=== PATIENT | male | born 1965 | race Caucasian/White ===

== ENCOUNTER → 2016-09-18 | Outpatient (CLI) | payer OTHER ==
[2016-08-08 18:48] VITALS: BP 124/81
[~2016-09-18] MED LIST: HYDR-971 PO; NAPR550T PO; ORPH100T PO
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
== END | disposition home or self-care (01) ==
LOC: KCIC MRI 15:53
DX: S46.911A Strain of unspecified muscle, fascia and tendon at shoulder and upper arm level, right arm, initial encounter (principal); M54.2 Cervicalgia; W19.XXXA Unspecified fall, initial encounter; Y93.89 Activity, other specified; Y92.89 Other specified places as the place of occurrence of the external cause; Y99.8 Other external cause status
CPT/HCPCS: 72141; 73221

== ENCOUNTER → 2017-05-25 | Outpatient (CLI) | payer OTHER ==
[2016-08-08 18:48] VITALS: BP 124/81
[~2017-05-25] MED LIST changes: +NAPR-682 PO; -NAPR550T PO
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
== END | disposition home or self-care (01) ==
LOC: KCIC CT 08:03
DX: S22.31XD Fracture of one rib, right side, subsequent encounter for fracture with routine healing (principal); C64.1 Malignant neoplasm of right kidney, except renal pelvis; X58.XXXD Exposure to other specified factors, subsequent encounter
CPT/HCPCS: 71250

== ENCOUNTER → 2018-07-22 | Outpatient (CLI) | payer BC ==
[2016-08-08 18:48] VITALS: BP 124/81
[~2018-07-22] MED LIST changes: +HYDR-3164 PO; -HYDR-971 PO
--- NOTE | 2018-07-22 14:07 | KCIC ---
EXAM: Cervical spine, 5 views. HISTORY: Pain. Left thumb numbness. COMPARISON: None. FINDINGS: 5 views of the cervical spine are obtained. There is minimal retrolisthesis of C3 on C4 and C5 on C6. There is mild degenerative endplate remodeling predominantly at C5-C6. There is mild facet arthropathy contributing to left foraminal stenosis at C3-C4, C4-C5 and C5-C6. IMPRESSION: 1. Multilevel degenerative change, described above. This results in foraminal stenosis at multiple levels. 2. No acute osseous finding. Electronically signed by: April Izaguirre MD (07/22/2018 2:03 PM) [facility]
== END | disposition home or self-care (01) ==
LOC: KCIC 13:36
PROVIDERS: ATTEND Chiropractor
DX: M47.22 Other spondylosis with radiculopathy, cervical region (principal); M48.02 Spinal stenosis, cervical region
CPT/HCPCS: 72050

== ENCOUNTER 2018-08-28 06:08 | Day surgery (SDC) | payer BC ==
[~2018-08-28] VITALS: Ht 172.7 cm; Wt 94.1 kg
[2018-08-28] MEDS ORDERED: DEXAMETHASONE SOD PHOS 20 MG/5 ML VIAL. ONE (06:49)
[2018-08-28] MEDS ORDERED: LIDOCAINE 2% PF 5 ML VIAL. ONE (06:49)
[2018-08-28] MEDS ORDERED: ONDANSETRON PF 4 MG/2 ML VIAL. ONE (06:49)
[2018-08-28] MEDS ORDERED: IV RINGERS,LACTATED 1000ML 1,000 ML IV SCH (07:00)
[2018-08-28] MEDS ORDERED: LIDOCAINE 1% PF 2 ML VIAL. ID PRN (07:00)
[2018-08-28] MEDS ORDERED: LIDOCAINE 1% PF 30 ML VIAL. ONE (07:00)
[2018-08-28] MEDS ORDERED: fentaNYL PF VIAL 100 MCG/2 ML VIAL IV PRN ×2 (07:00)
[2018-08-28] MEDS ORDERED: HYDROmorphone 2 MG/ML VIAL IV PRN (07:00)
[2018-08-28] MEDS ORDERED: MORPHINE SULFATE 4 MG/ML VIAL. IV PRN (07:00)
[2018-08-28] MEDS ORDERED: ONDANSETRON PF 4 MG/2 ML VIAL. IV PRN (07:00)
[2018-08-28] MEDS ORDERED: BUPIVACAINE MPF 0.5% 30 ML VIAL. ONE (07:00)
[2018-08-28] MEDS ORDERED: PROCHLORPERAZINE 10 MG/2 ML VIAL. IV PRN (07:00)
[2018-08-28] MEDS ORDERED: MIDAZOLAM HCL/PF 2 MG/2 ML VIAL. ONE (07:19)
[2018-08-28] MEDS ORDERED: fentaNYL PF VIAL 100 MCG/2 ML VIAL ONE (07:19)
--- NOTE | 2018-08-28 07:29 | DISCH ---
DISCHARGE INSTRUCTIONS Condition on Discharge Condition on Discharge: Stable Activity After Discharge Activity Instructions for Disc: Other, see below Other activity instructions: wiggle fingers Bathing Instructions: Shower-keep dressing dry Weight Bearing Status after Di: As tolerated Diet after Discharge Diet after Discharge: Regular Wound Incision Care Wound/Incision Care: Ice to area for comfort, Keep wound/cast CDI, Keep wound elevated, Change dressing Other wound/incision instructi: ok to change dressing after [address] after DC Call your doctor for: Concerns you may have Follow-Up Follow up with: Renard in 2 wks BRICE MADISON II, MD Aug 28, 2018 07:29
[2018-08-28] MEDS ORDERED: ONDA8TAB9 PO (08:15)
[2018-08-28] MEDS ORDERED: HYDR-3164 PO (08:15)
[2018-08-28 08:30] VITALS: BP 121/77
--- NOTE | 2018-08-28 08:58 | PDOC4 ---
Operative Note Operative Note Date of procedure: 08/28/2018 Surgeon: Pelon Murguia.: None Preoperative diagnosis: Right trigger thumb Postoperative diagnosis: Same Procedure performed: Open right trigger thumb release Anesthesia: Sedation plus local Tourniquet time: 11 minutes Blood loss: 2 mL Findings: Thickened nodule and flexor tendon Complications: None Reason for procedure: Patient is a 53-year-old gentleman who had catching and locking requiring use of his contralateral hand at times at his right thumb. Clinical and radiographic examination were consistent with the above preoperative diagnosis and we had a discussion of the risks, benefits, alternatives to surgery and he wished to proceed. Description of procedure: Patient was greeted in the preoperative area where the correct digit was verified and marked. They were taken back to the operative suite and transferred gently supine onto the operating room table. There antibiotics were started. The patient underwent conscious sedation monitored by the anesthesiology team. A tourniquet was applied to the patient's right upper extremity. Right upper extremity was then prepped and draped in our usual sterile fashion we conducted our standard preoperative timeout. I then palpated and over the affected digit for the nodule and metacarpal head. I then made an incision corresponding to this. I incised skin with a scalpel and used bipolar cautery for hemostasis. Mosquitoes were used to dissect the subcutaneous tissue and to identify the A1 charles which was then transected with tenotomy scissors. The flexor tendons were delivered from the operative field with the mosquito to help ensure that accomplished a complete release. After this, the wound was irrigated out and the skin was closed with simple interrupted 3-0 nylon. All counts correct �2 prior to wound closure. No complications. Sterile soft bulky dressing was applied. Tourniquet was let down. The patient was awakened from sedation and transferred gently supine to the recovery room cart and taken to PACU in a stable and extubated condition. Postoperative plan is to discharge patient home. Active range of motion was encouraged. Wound care was discussed with family and given and written form. Patient will follow up with me in 2 weeks, sooner should a problem arise. PELON MADISON II, MD Aug 28, 2018 08:58
== END 2018-08-28 08:48 | disposition home or self-care (01) ==
LOC: SURG 06:08
PROVIDERS: ATTEND Orthopaedic Surgery Sports Medicine
DX: M65.311 Trigger thumb, right thumb (principal); Z72.89 Other problems related to lifestyle; Z98.890 Other specified postprocedural states
CPT/HCPCS: 26055; J0696; J1100; J2001; J2250; J2405; J3010; J3490